=== PATIENT | female | born 1960 | race African-American/Black ===

== ENCOUNTER 2019-12-26 13:58 | Outpatient (CLI) | payer OTHER ==
--- NOTE | 2019-12-26 15:11 | CT ---
CT orbits noncontrast: 12/26/2019 HISTORY: 59-year-old female with traumatic left periorbital ecchymosis and contusion. FINDINGS: There is no fracture of the orbits; dutta of the maxillary, ethmoid, frontal, or sphenoid sinuses; zy gomatic arches; pterygoid plates; mandibular condyles; or maxilla. No air-fluid levels in the paranasal sinuses. Mucus retention cysts, small, in the bilateral maxillary sinuses medially. Otherwise, the paranasal sinuses and nasal cavity, are clear. No superficial or deep soft tissue hematoma. IMPRESSION: Negative
== END 2019-12-26 13:59 | disposition home or self-care (01) ==
LOC: SCSCT 13:58
PROVIDERS: ATTEND Family Medicine
DX: S00.83XD Contusion of other part of head, subsequent encounter (principal)
CPT/HCPCS: 70480